=== PATIENT | female | born 1965 | race Caucasian/White ===

== ENCOUNTER 2020-02-28 12:17 | Emergency (ER) | payer MEDICARE, MEDICAID, SELFPAY ==
--- NOTE | 2020-02-28 12:26 | ED.SKABFB ---
HPI - Skin/Abscess/Foreign Bdy General Chief complaint: Skin/Abscess/Foreign Body Stated complaint: Rash on left leg Time Seen by Provider: 02/28/20 12:26 Source: patient and RN notes reviewed History of Present Illness HPI narrative: Patient is a 54-year-old female that presents the urgent care with complaints of a rash to the left lower leg as well as a small patch to the posterior lateral left knee. Patient states that the area is very painful. States that she noticed it approximately 3 days ago and it seems to have gotten larger. Patient denies any recent fall or trauma. Denies any fever, chills, nausea, vomiting. Denies any numbness or tingling in the left lower extremity, foot, toes. No other acute complaints. No acute distress noted. Patient read the plan of care. Related Data Home Medications Medication Instructions Recorded Confirmed No Home Medications 02/28/20 02/28/20 Allergies Allergy/AdvReac Type Severity Reaction Status Date / Time No Known Allergies Allergy Unknown Verified 02/28/20 12:36 Review of Systems Review of Systems: Narrative: CONSTITUTIONAL: Denies fever, chills, or sweats. EYES: Denies visual changes, redness, or discharge. ENT: Denies rhinorrhea, congestion, sore throat, or otalgia. CARDIOVASCULAR: Denies chest pain, palpitations, or edema. RESPIRATORY: Denies cough or dyspnea. GASTROINTESTINAL: Denies abdominal pain, nausea, vomiting, or diarrhea. GENITOURINARY: Denies dysuria or hematuria. SKIN: Reports of a painful reddened area to the left lower leg MUSCULOSKELETAL: Denies back pain, joint pain, or myalgia. NEUROLOGIC: Denies headache, numbness, or weakness. All other systems reviewed are negative, except as documented in HPI. [facility] Past Medical History Medical History (Updated 02/28/20 @ 12:53 by DYLAN Floyd) Alcoholic fibrosis and sclerosis of liver COPD (chronic obstructive pulmonary disease) Knee pain, left Left medial tibial plateau fracture (~04/2018) Social History Social History Smoking status: Former smoker Smoking end date: 11/14/03 Alcohol intake: current Gender identity (if verbalized by the patient): Female Comments At the time of my signature, I reviewed and agree with the nursing past medical, surgical, social, and family history. There is no relevant family history pertinent to the patient complaint. Exam Narrative: Exam Narrative: GENERAL: This is a well-nourished, well-developed patient, in no apparent distress. HEAD: normocephalic, atraumatic. EYES: PERRL. Sclera clear/white. Vision is grossly intact. EARS: External ears normal NOSE: External nose normal with no obvious nasal discharge THROAT: Mucous membranes moist, posterior pharynx clear. NECK: Neck supple CARDIOVASCULAR: Regular rate and rhythm without murmurs, gallops, or rubs. RESPIRATORY: Clear to auscultation. Breath sounds equal bilaterally. No wheezes, rales, or rhonchi. NEURO: awake, alert, and oriented to person, place and time. There were no obvious focal neurologic abnormalities. EXTREMITIES: 7 cm diameter region of ecchymotic erythemic mildly edematous vasculitic affected area noted to the left lower lateral leg, positive strong left pedal pulse with capillary refill less than 2 seconds. Range of motion within normal limits to left lower extremity. Affected area very tender on assessment. Multiple pinpoint surrounding ecchymotic scabbed areas to the left lower extremity. Course Vital Signs Vital signs: Vital Signs Temperature 98.4 F 02/28/20 12:30 Pulse Rate 73 02/28/20 12:30 Respiratory Rate 16 02/28/20 12:30 Blood Pressure 109/75 02/28/20 12:30 Pulse Oximetry 98 02/28/20 12:30 Temperature 98.4 F 02/28/20 12:30 Pulse Rate 73 02/28/20 12:30 Respiratory Rate 16 02/28/20 12:30 Blood Pressure 109/75 02/28/20 12:30 Pulse Oximetry 98 02/28/20 12:30 Reviewed [facility]
[2020-02-28 12:30] VITALS: BP 109/75; PULSE 73; RESP 16; TEMP 36.9; O2SAT 98
== END 2020-02-28 12:56 | disposition left against medical advice (07) ==
PROVIDERS: Emergency Provider Nurse Practitioner Family
DX: I77.6 Arteritis, unspecified (principal); Z87.891 Personal history of nicotine dependence; J44.9 Chronic obstructive pulmonary disease, unspecified; K70.2 Alcoholic fibrosis and sclerosis of liver
CPT/HCPCS: 99211; G0463

== ENCOUNTER 2020-02-29 10:48 | Emergency (ER) | payer MEDICARE, MEDICAID, SELFPAY ==
--- NOTE | ~2020-02-29 | US_ITS ---
EXAMINATION:US venous doppler LE LT INDICATION:Left lower extremity pain TECHNIQUE: Multiple grayscale, color flow and Doppler images of the left lower extremity deep venous systems were obtained and reviewed. COMPARISON:No prior studies for comparison. FINDINGS: The common femoral, superficial femoral and popliteal veins demonstrate normal respiratory variation, augmentation and compressibility. Color flow is also seen within the posterior tibial, pe roneal, greater saphenous and profunda veins. IMPRESSION: 1: No lower extremity deep venous thrombosis. Reviewed, dictated and finalized at location A.
[2020-02-29 10:54] VITALS: BP 107/72; PULSE 90; RESP 18; TEMP 36.8; O2SAT 99
--- NOTE | 2020-02-29 12:01 | ED.LOWEXIN ---
HPI - Extremity Injury (Lower) General Chief Complaint: Extremity Injury, Lower Stated Complaint: Need my leg checked out Time Seen by Provider: 02/29/20 11:15 Source: patient Mode of arrival: ambulatory Limitations: no limitations History of Present Illness HPI Narrative: Patient is a 54-year-old female who presents to emergency department for evaluation of rash to the lower extremity with multiple smaller lesions and 2 erythematous plaque-like lesions along the lateral aspect 1 at the mid desai and one at the lateral aspect of the knee patient notes mild aching pain worse with touch patient denies injury or trauma patient notes she has followed by dermatology for similar rashes and is currently being worked up for lupus. Patient denies injury trauma fever chills nausea vomiting or weakness or any paresthesias. Patient has not taken anything for her Related Data Allergies Allergy/AdvReac Type Severity Reaction Status Date / Time No Known Allergies Allergy Unknown Verified 02/29/20 10:57 Review of Systems Review of Systems: All systems reviewed & are unremarkable except as noted in HPI and below PMFSH Past Medical History Medical History Alcoholic fibrosis and sclerosis of liver COPD (chronic obstructive pulmonary disease) Knee pain, left Left medial tibial plateau fracture (~04/2018) Social History Social History Smoking status: Former smoker Smoking end date: 11/14/03 Alcohol intake: current Gender identity (if verbalized by the patient): Female Exam Narrative: Exam Narrative: GENERAL: Well-appearing, well-nourished, and in no acute distress. HEAD: Normocephalic, atraumatic. EYES: PERRLA and EOMI. ENT: Nares clear, no rhinorrhea or epistaxis. Mucous membranes moist. CHEST: Clear to auscultation. No respiratory distress. No wheezes rales or rhonchi HEART: Regular rate and rhythm. No murmur heard. Normal peripheral pulses. EXTREMITIES: Normal range of motion. No edema. SKIN: Warm, dry, no rash. Patient with dry erythematous plaque along the left mid desai. Patient with other small macular erythematous lesions on the bilateral legs and of the upper back. Patient with other small erythematous plaque with cracked skin along the lateral aspect of the left knee NEURO: No focal deficits. Alert and oriented x3. Neurovascularly intact. Capillary refill less than 2 seconds PSYCH: Normal mood and affect. Course Course Emergency Course: Patient aware of case findings treatment plan and diagnosis in the room resting comfortably afebrile nontoxic-appearing Vital Signs Vital signs: Vital Signs Temperature 98.2 F 02/29/20 10:54 Pulse Rate 90 02/29/20 10:54 Respiratory Rate 18 02/29/20 10:54 Blood Pressure 107/72 02/29/20 10:54 Pulse Oximetry 99 02/29/20 10:54 Temperature 98.2 F 02/29/20 10:54 Pulse Rate 90 02/29/20 10:54 Respiratory Rate 18 02/29/20 10:54 Blood Pressure 107/72 02/29/20 10:54 Pulse Oximetry 99 02/29/20 10:54 MDM - Extremity Injury (Lower) MDM Narrative Medical decision making narrative: Patients injury or pain is consistent with musculoskeletal etiology. No signs of neurological or vascular compromise on exam. Compartments and tisues are soft without signs of compartment syndrome. Pain is felt appropriate for further evaluation on an outpatient basis. Patient's rash is nonspecific advised to continue to follow with her [employer] for further evaluation. Provided with reasons to return. Patient notes she will follow with primary care and dermatology patient will be covered with antibiotics precautionary Imaging Data Radiologist's impression: ITS Impressions Venous Doppler Study 02/29/20 11:57 IMPRESSION: 1: No lower extremity deep venous thrombosis. Discharge Plan Discharge Clinical Impression: Acute pain of left l
[2020-02-29 12:24] LABS: Basophils Percent Auto 0.9 % (0.2-1.2); Eosinophils Absolute Auto 0.1 K/mm3 (0-0.3); Eosinophils Percent Auto 2.3 % (0-4.4); Hematocrit 35.4 % (37.0-47.0); Hemoglobin 11.8 g/dL (12.0-15.0); Immature Granulocyte Absolute 0.01 K/mm3 (0.00-0.031); Immature Granulocyte Percent A 0.5 % (0-0.5); Immature Platelet Fraction Pct 9.2 % (0.9-11.2); Lymphocytes Absolute Auto 0.54 K/mm3 (0.9-3.2); Lymphocytes Percent Auto 24.3 % (18.3-44.2); Mean Corpuscular HGB Conc 33.3 g/dl (32-36); Mean Corpuscular Hemoglobin 32.2 pg (26-34); Mean Corpuscular Volume 96.7 fl (80-100); Mean Platelet Volume 10.9 fl (7.4-10.4); Monocytes Absolute Auto 0.2 K/mm3 (0.1-0.6); Monocytes Percent Auto 10.4 % (2.6-8.5); Neutrophils Absolute Auto 1.4 K/mm3 (1.3-6.7); Neutrophils Percent Auto 61.6 % (45.5-73.1); Platelet Count Result 48 k/mm3 (150-375); Red Blood Count 3.66 M/mm3 (4.2-5.4); Red Cell Distribution Width 12.8 % (11.5-14.5); White Blood Count 2.2 K/mm3 (4.5-10.0)
[2020-02-29 12:34] LABS: INR 1.2; Prothrombin Time 14.5 Seconds (11.1-14.7)
[2020-02-29 12:35] LABS: Partial Thromboplastin Time 34.6 SECONDS (22.3-36.8)
[2020-02-29 12:38] LABS: Alanine Aminotransferase 115 U/L (4-35); Albumin Level 4.3 g/dL (3.5-5.1); Alkaline Phosphatase 169 U/L (38-126); Aspartate Amino Transferase 351 U/L (14-36); Bilirubin,Total 1.2 mg/dL (0.2-1.3); Blood Urea Nitrogen 4 mg/dL (7-17); Calcium 8.5 mg/dL (8.4-10.2); Carbon Dioxide 26 mmol/L (22-30); Chloride 97 mmol/L (98-107); Estimated CRCL calculation 99 ml/min; Estimated Glomerular Filt Rate > 60; Glucose 89 mg/dL (65-105); Potassium 4.4 mmol/L (3.4-5.0); Sodium 132 mmol/L (137-145)
== END 2020-02-29 13:20 | disposition home or self-care (01) ==
PROVIDERS: Emergency Medicine Emergency Medical Services; Emergency Provider Emergency Medicine; PCP Family Medicine
DX: R21 Rash and other nonspecific skin eruption (principal); M79.662 Pain in left lower leg; J44.9 Chronic obstructive pulmonary disease, unspecified; K70.2 Alcoholic fibrosis and sclerosis of liver; Z87.891 Personal history of nicotine dependence
CPT/HCPCS: 36415; 80053; 85025; 85055; 85610; 85730; 93971; 99284